=== PATIENT | male | born 1975 | race Caucasian/White ===

== ENCOUNTER 2020-03-09 16:39 | Emergency (ER) | payer OTHER ==
[~2020-03-09] VITALS: Ht 177.8 cm; Wt 90.7 kg
[2020-03-09] MEDS ORDERED: IBUPROFEN 800800 M1 PO (18:06)
[2020-03-09 18:20] VITALS: BP 136/73
== END 2020-03-09 18:21 | disposition home or self-care (01) ==
LOC: M.ERS 16:39
DX: M25.442 Effusion, left hand (principal)